=== PATIENT | male | born 1950 | race Caucasian/White ===

== ENCOUNTER 2025-06-07 15:02 | Emergency (ER) | payer MEDICARE ==
[2025-06-07] MEDS: Bacitracin Oint 1 GM U/D Packet TOP ONE (16:00)
[2025-06-07] MEDS: Diphtheria,Pertussis(Acell),Tetanus Vaccine 0.5 ML Syringe IM ONE (16:13)
== END 2025-06-07 16:20 | disposition home or self-care (01) ==
LOC: LB.ED 15:02
DX: S50.01XA Contusion of right elbow, initial encounter (principal); Z23 Encounter for immunization; W20.8XXA Other cause of strike by thrown, projected or falling object, initial encounter; Y93.89 Activity, other specified
CPT/HCPCS: 90471; 90715; 99282; 99283-25